=== PATIENT | female | born 1985 | race Caucasian/White ===

== ENCOUNTER 2016-11-13 16:30 | Inpatient (IN) | payer OTHER ==
[2016-11-13] MEDS ORDERED: NS 1,000 ML IV ONE (17:22)
[2016-11-13] MEDS ORDERED: ONDANSETRON 4 MG/2 ML VIAL IVP ONE (17:22)
[2016-11-13] MEDS ORDERED: methylPREDNISolone SOD SUCC 125 MG/2 ML VIAL IVP ONE (17:25)
--- NOTE | 2016-11-13 17:30 | EDPHY ---
H & P Stated Complaint: diarrhea since august/often bloody/hx UC treating with herbs Time Seen by Provider: 11/13/16 17:26 HPI/ROS: HPI: This is a 30-year-old female who presents with Chief Complaint: Bloody diarrhea Location: GI Quality: Bloody diarrhea Duration: Since August Signs and Symptoms: + fever, + chills, + weight loss, + abdominal cramping, no nausea, no vomiting, no hematemesis, no dysuria Timing: Intermittent, several times per day Severity: Moderate Context: Patient complains of worsening diarrhea of greater than 10-20 times per day and since August has noted blood tinged stool. The symptoms continued to worsen. Today alone she has used the bathroom approximately 20 times. She was diagnosed with ulcerative colitis 4 years ago in [place]. Reports that her colonoscopy was incomplete at that time. She never followed up with GI and is not on any maintenance medications as she wants to try alternative therapies. She reports weight loss, intermittent fevers, chills, abdominal cramping. No recent antibiotic use. Modifying Factors: Alternative herbal supplements Comment: ROS: See HPI Constitutional: + fever, + chills, + weight loss Eyes: No blurred vision Respiratory: No shortness of breath, no cough Cardiovascular: No chest pain Gastrointestinal: No nausea, no vomiting, + diarrhea Genitourinary: No dysuria Extremities: No myalgias Neurologic: No weakness, no numbness Skin: No rashes Hematologic: No bruising, no bleeding MEDICAL/SURGICAL/SOCIAL HISTORY: Medical history: Ulcerative colitis Surgical history: Denies Social history: with children. CONSTITUTIONAL: Ill-appearing young adult female, awake and alert, no obvious distress HEENT: Atraumatic and normocephalic, PERRL, EOMI. Tympanic membranes clear. Oropharynx clear, no exudate and moist pink mucosa. Airway patent. No lymphadenopathy. No meningismus. Cardiovascular: Normal S1/S2, regular rate, regular rhythm, without murmur rub or gallop. PULMONARY/CHEST: Symmetrical and nontender. Clear to auscultation bilaterally. Good air movement. No accessory muscle usage. ABDOMEN: Soft, nondistended, non focal generalized tenderness, no rebound, no guarding, no peritoneal signs, no masses or organomegaly. No CVAT. Hyperactive bowel sounds x4 quadrants RECTAL: Inflamed perirectal area with mild erythema, good sphincter tone, loose yellow stool noted in vault, no masses palpated, no shimon blood seen when obtaining guaiac sample EXTREMITIES: 2/2 pulses, no deformities, no clubbing, no cyanosis or edema. NEUROLOGICAL: no focal neuro deficits. GCS 15. SKIN: Warm and dry, no erythema. no rash. Good capillary refill. Source: Patient, Family Exam Limitations: No limitations - Personal History LMP (Females 10-55): 22-28 Days Ago Current Tetanus/Diphtheria Vaccine: Yes - Medical/Surgical History Hx Asthma: No Hx Chronic Respiratory Disease: No Hx Diabetes: No Hx Cardiac Disease: No Hx Renal Disease: No Hx Cirrhosis: No Hx Alcoholism: No Hx HIV/AIDS: No Hx Splenectomy or Spleen Trauma: No Other PMH: ulcerative colitis - Social History Smoking Status: Never smoked Constitutional: Initial Vital Signs Temperature (C) 37.4 C 11/13/16 16:37 Heart Rate 148 H 11/13/16 16:37 Respiratory Rate 17 11/13/16 16:37 Blood Pressure 107/81 H 11/13/16 16:37 O2 Sat (%) 97 11/13/16 16:37 O2 Delivery Mode Room Air Allergies/Adverse Reactions: lidocaine Allergy (Verified 11/13/16 19:55) Unknown Home Medications: Medication Instructions Recorded Acetaminophen [Tylenol 325mg (*)] 325 mg PO Q6 PRN 11/13/16 Herbals/Supplements -Info Only 1 tab PO DAILY 11/13/16 Multivitamins [Multivitamin (*)] 1 each PO DAILY 11/13/16 [place]-3 Fatty Acids [Fish Oil 1000 1,000 mg PO HS 11/13/16 mg (*)] Sod Phos,M-B/Na Phos,Di-Ba [Enema] 133 ml RC DAILY PRN 11/13/16 Medical Decision Making - Diagnostics Imaging Results: Imaging Impressions Abdomen CT 11/13/16 17:23 Impression: 1. Bowel wall thickening predominantly involving the sigmoid consistent with the clinical history of ulcerative colitis. 2. Findings compatible with hepatic steatosis are noted. Results called and discussed with Debra Cutler PA-C, on 11/13/2016, at 1909 hours. ED Course/Re-evaluation: Labs, stool studies, blood cx, UA, guaiac stool, IV fluids, IV medication, CT abdomen and pelvis ordered Given 2 L normal saline and IV methylprednisolone 125 mg. 1730: Suspect patient will need to be admitted for moderate to severe ulcerative colitis flare. She has tachycardia, low normal blood pressure, intermittent fevers, with prolonged uncontrolled ulcerative colitis and no GI follow-up here in [place]. Sodium of 126 noted; creatinine within normal limits, potassium 3.8 Stool occult blood negative. ESR 60 1920: Called by radiologist and CT scan shows thickening in the sigmoid IV Cipro and Flagyl given. UA shows infection; sent for urine culture; will be covered with IV Cipro given previously for colitis 1920: ED decision to consult for admission. Spoke with hospitalist Dr. Gilmer alcaraz accepts patient to provide further care. Spoke with GI of [facility] who kindly agrees to consult on patient. Differential Diagnosis: Abdominal pain including but not limited to appendicitis, cholecystitis, gastritis and urinary tract infection. Critical Care Time: I spent a total of 43 minutes of critical care time in obtaining history, performing a physical exam, bedside monitoring of interventions, collecting and interpreting tests and discussion with consultants but not including time spent performing procedures. Dx: Ulcerative colitis flare, hyponatremia. - Data Points Laboratory Results: Laboratory Results 11/13/16 17:15 11/13/16 17:15 11/13/16 11/13/16 11/13/16 18:10 17:50 17:15 WBC RBC Hgb Hct MCV MCH MCHC RDW Plt Count MPV Neut % (Auto) Lymph % (Auto) Metcalfe % (Auto) Eos % (Auto) Baso % (Auto) Nucleat RBC Rel Count Absolute Neuts (auto) Absolute Lymphs (auto) Absolute Monos (auto) Absolute Eos (auto) Absolute Basos (auto) Absolute Nucleated RBC Immature Gran % Seg Neutrophils % Band Neutrophils % Lymphocytes % Monocytes % Eosinophils % Immature Gran # Absolute Seg Neuts Absolute Band Neuts Absolute Lymphocytes Absolute Monocytes Absolute Eosinophils RBC/WBC/PLT Morphology Toxic Granulation Platelet Estimate Large Platelets ESR VBG Lactic Acid 1.0 mmol/L mmol/L (0.7-2.1) Sodium Potassium Chloride Carbon Dioxide Anion Gap BUN Creatinine Estimated GFR Glucose Calcium Total Bilirubin Conjugated Bilirubin Unconjugated Bilirubin AST ALT Alkaline Phosphatase Total Protein Albumin Lipase Beta HCG, Qual Urine Color PALE YELLOW Urine Appearance CLEAR Urine pH 7.0 (5.0-7.5) Ur Specific Franklin 1.002 (1.002-1.030) Urine Protein NEGATIVE (NEGATIVE) Urine Ketones NEGATIVE (NEGATIVE) Urine Blood 1+ H (NEGATIVE) Urine Nitrate NEGATIVE (NEGATIVE) Urine Bilirubin NEGATIVE (NEGATIVE) Urine Urobilinogen NEGATIVE EU EU (0.2-1.0) Ur Leukocyte Esterase 2+ H (NEGATIVE) Urine RBC 1-3 /hpf /hpf (0-3) Urine WBC 15-25 /hpf H /hpf (0-3) Ur Epithelial Cells NONE SEEN /lpf /lpf (NONE-1+) Urine Bacteria 1+ /hpf H /hpf (NONE SEEN) Urine Glucose NEGATIVE (NEGATIVE) Stool Occult Bld Scrn NEGATIVE (NEGATIVE) 11/13/16 11/13/16 11/13/16 17:15 17:15 17:15 WBC 7.00 10^3/uL 10^3/uL (3.80-9.50) RBC 4.84 10^6/uL 10^6/uL (4.18-5.33) Hgb 12.5 g/dL L g/dL (12.6-16.3) Hct 38.3 % % (38.0-47.0) MCV 79.1 fL L fL (81.5-99.8) MCH 25.8 pg L pg (27.9-34.1) MCHC 32.6 g/dL g/dL (32.4-36.7) RDW 14.9 % % (11.5-15.2) Plt Count 444 10^3/uL H 10^3/uL (150-400) MPV 8.5 fL L fL (8.7-11.7) Neut % (Auto) 68.9 % % (39.3-74.2) Lymph % (Auto) 18.7 % % (15.0-45.0) Metcalfe % (Auto) 10.7 % % (4.5-13.0) Eos % (Auto) 0.3 % L % (0.6-7.6) Baso % (Auto) 0.7 % % (0.3-1.7) Nucleat RBC Rel Count 0.0 % % (0.0-0.2) Absolute Neuts (auto) 4.82 10^3/uL 10^3/uL (1.70-6.50) Absolute Lymphs (auto) 1.31 10^3/uL 10^3/uL (1.00-3.00) Absolute Monos (auto) 0.75 10^3/uL 10^3/uL (0.30-0.80) Absolute Eos (auto) 0.02 10^3/uL L 10^3/uL (0.03-0.40) Absolute Basos (auto) 0.05 10^3/uL 10^3/uL (0.02-0.10) Absolute Nucleated RBC 0.00 10^3/uL 10^3/uL (0-0.01) Immature Gran % 0.7 % % (0.0-1.1) Seg Neutrophils % 28 % % Band Neutrophils % 31 % % Lymphocytes % 33 % % Monocytes % 7 % % Eosinophils % 1 % % Immature Gran # 0.05 10^3/uL 10^3/uL (0.00-0.10) Absolute Seg Neuts 1.96 10^/uL 10^/uL (1.70-6.50) Absolute Band Neuts 2.17 10^3/uL H 10^3/uL (0.00-0.70) Absolute Lymphocytes 2.31 10^3/uL 10^3/uL (1.00-3.00) Absolute Monocytes 0.49 10^3/uL 10^3/uL (0.30-0.80) Absolute Eosinophils 0.07 10^3/uL 10^3/uL (0.03-0.40) RBC/WBC/PLT Morphology NORMAL (NORMAL) Toxic Granulation PRESENT H Platelet Estimate INCREASED H (ADEQ) Large Platelets PRESENT H ESR 60 MM/HR H MM/HR (0-20) VBG Lactic Acid Sodium 126 mEq/L L mEq/L (134-144) Potassium 3.8 mEq/L mEq/L (3.5-5.2) Chloride 90 mEq/L L mEq/L (97-110) Carbon Dioxide 26 mEq/l mEq/l (22-31) Anion Gap 10 mEq/L mEq/L (8-16) BUN 5 mg/dL L mg/dL (7-23) Creatinine 0.6 mg/dL mg/dL (0.6-1.0) Estimated GFR > 60 Glucose 116 mg/dL H mg/dL (70-100) Calcium 8.1 mg/dL L mg/dL (8.5-10.4) Total Bilirubin 0.5 mg/dL mg/dL (0.1-1.4) Conjugated Bilirubin 0.3 mg/dL mg/dL (0.0-0.5) Unconjugated Bilirubin 0.2 mg/dL mg/dL (0.0-1.1) AST 21 IU/L IU/L (14-46) ALT 46 IU/L IU/L (9-52) Alkaline Phosphatase 96 IU/L IU/L (38-126) Total Protein 5.7 g/dL L g/dL (6.3-8.2) Albumin 2.7 g/dL L g/dL (3.5-5.0) Lipase 19 IU/L L IU/L (23-300) Beta HCG, Qual NEGATIVE Urine Color Urine Appearance Urine pH Ur Specific Franklin Urine Protein Urine Ketones Urine Blood Urine Nitrate Urine Bilirubin Urine Urobilinogen Ur Leukocyte Esterase Urine RBC Urine WBC Ur Epithelial Cells Urine Bacteria Urine Glucose Stool Occult Bld Scrn Medications Given: Sodium Chloride (Ns) 1,000 mls @ 100 mls/hr IV CONT HUMBERTO Stop: 05/12/17 21:14 Last Admin: 11/13/16 22:20 Dose: 1,000 mls Methylprednisolone Sodium Succinate (Solu-Medrol) 40 mg IVP Q8HRS HUMBERTO Stop: 05/12/17 21:59 Last Admin: 11/13/16 22:21 Dose: 40 mg Discontinued Medications Acetaminophen (Tylenol) 650 mg PO EDNOW ONE Stop: 11/13/16 18:20 Last Admin: 11/13/16 18:38 Dose: 650 mg Sodium Chloride (Ns) 1,000 mls @ 0 mls/hr IV EDNOW ONE; Wide Open PRN Reason: Protocol Stop: 11/13/16 17:23 Last Admin: 11/13/16 17:52 Dose: 1,000 mls Sodium Chloride (Ns) 1,000 mls @ 0 mls/hr IV EDNOW ONE; Wide Open PRN Reason: Protocol Stop: 11/13/16 17:23 Last Admin: 11/13/16 17:53 Dose: 1,000 mls Ciprofloxacin/Dextrose (Cipro 400 Mg (Premix)) 200 mls @ 200 mls/hr IV EDNOW ONE PRN Reason: Protocol Stop: 11/13/16 20:24 Last Admin: 11/13/16 19:35 Dose: 200 mls Metronidazole/Sodium Chloride (Flagyl 500 Mg (Premix)) 100 mls @ 100 mls/hr IV EDNOW ONE PRN Reason: Protocol Stop: 11/13/16 20:27 Last Admin: 11/13/16 21:14 Dose: 100 mls Methylprednisolone Sodium Succinate (Solu-Medrol) 125 mg IVP EDNOW ONE Stop: 11/13/16 17:26 Last Admin: 11/13/16 17:47 Dose: 125 mg Ondansetron HCl (Zofran) 4 mg IVP EDNOW ONE Stop: 11/13/16 17:23 Last Admin: 11/13/16 17:47 Dose: 4 mg Departure - Departure Disposition: [facility] Inpatient Acute Clinical Impression: Hyponatremia, Acute lower UTI (urinary tract infection) Ulcerative colitis, acute Qualifiers: Digestive disease complication type: without complication Qualified Code(s): K51.90 - Ulcerative colitis, unspecified, without complications
[2016-11-13 17:40] LABS: % IMMATURE GRANULYOCYTES 0.7 % (0.0-1.1); ABSOLUTE IMMATURE GRANULOCYTES 0.05 10^3/uL (0.00-0.10); ADD DIFF? NO; ADD MORPH? NO; ADD SCAN? YES; ALANINE AMINOTRANSFERASE 46 IU/L (9-52); ALBUMIN 2.7 g/dL (3.5-5.0); ALKALINE PHOSPHATASE 96 IU/L (38-126); ANION GAP 10 mEq/L (8-16); ASPARTATE AMINOTRANSFERASE 21 IU/L (14-46); ATYPICAL LYMPHOCYTE FLAG 80 (0-99); BILIRUBIN,TOTAL 0.5 mg/dL (0.1-1.4); BILIRUBIN-CONJUGATED 0.3 mg/dL (0.0-0.5); BILIRUBIN-UNCONJUGATED 0.2 mg/dL (0.0-1.1); CALCIUM 8.1 mg/dL (8.5-10.4); CARBON DIOXIDE 26 mEq/l (22-31); CHLORIDE 90 mEq/L (97-110); CREATININE 0.6 mg/dL (0.6-1.0); FRAGMENT RBC FLAG 0 (0-99); GLOMERULAR FILTRATION RATE > 60; GLUCOSE 116 mg/dL (70-100); HEMATOCRIT 38.3 % (38.0-47.0); HEMOGLOBIN 12.5 g/dL (12.6-16.3); LIPEMIA HEMOLYSIS FLAG 80 (0-99); MEAN CELL HEMOGLOBIN 25.8 pg (27.9-34.1); MEAN CELL HEMOGLOBIN CONCENTR. 32.6 g/dL (32.4-36.7); MEAN CELL VOLUME 79.1 fL (81.5-99.8); MEAN PLATELET VOLUME 8.5 fL (8.7-11.7); PLATELET CLUMPS FLAG 0 (0-99); PLATELET COUNT 444 10^3/uL (150-400); POTASSIUM 3.8 mEq/L (3.5-5.2); RED BLOOD CELL COUNT 4.84 10^6/uL (4.18-5.33); RED CELL DISTRIBUTION WIDTH 14.9 % (11.5-15.2); SODIUM 126 mEq/L (134-144); TOTAL PROTEIN 5.7 g/dL (6.3-8.2)
[2016-11-13] MEDS: NS 1,000 ML IV ONE ×3 (17:46→17:52)
[2016-11-13 17:51] LABS: LEFT SHIFT FLG 300 (0-99)
[2016-11-13 18:09] LABS: SCAN POSITIVE
[2016-11-13 18:13] LABS: PLATELET ESTIMATE INCREASED (ADEQ); TOXIC GRANULATION PRESENT
[2016-11-13 18:14] LABS: LARGE PLATELETS PRESENT
[2016-11-13] MEDS ORDERED: IOPAMIDOL (ISOVUE-300) 100 ML BTL ONE (18:17)
[2016-11-13] MEDS ORDERED: ACETAMINOPHEN 325 MG TAB PO ONE (18:19)
[2016-11-13 18:30] LABS: SEDIMENTATION RATE 60 MM/HR (0-20)
[2016-11-13 18:33] LABS: COLOR PALE YELLOW; LEUKOCYTE ESTERASE,URINE 2+ (NEGATIVE); NITRITE,URINE NEGATIVE (NEGATIVE)
[2016-11-13 18:36] LABS: BACTERIA 1+ /hpf (NONE SEEN); WBC,URINE 15-25 /hpf (0-3)
[2016-11-13] MEDS ORDERED: CIPROFLOXACIN 400 MG/DEXTROSE 200 ML IV ONE (19:25)
[2016-11-13] MEDS ORDERED: ONDANSETRON 4 MG/2 ML VIAL IVP PRN (21:15)
--- NOTE | 2016-11-13 21:53 | GHP ---
[f rep st] HISTORY AND PHYSICAL DATE OF ADMISSION: 11/13/2016 CHIEF COMPLAINT: Diarrhea. HISTORY: This patient is a 30-year-old female who was diagnosed with ulcerative colitis when she randal ed in [place] many years ago. She was initially treated with mesalamine, but it did not help and s he thinks made her ulcerative colitis actually worse, so she discontinued the medication. Has been t reating it with herbals now for many years. She now presents to the emergency room due to severe pasquale rrhea which she has been having since August. She has 35-50 bowel movements per day. She sees blood c lots in the stool 1-3 times per day. She has severe abdominal spasms and cramps. She spends most of her day on the toilet. There have been no nausea and vomiting. She has been having fever and chill s, with fevers at home up to 105 for the last month. She has had a 50-pound weight loss. She does t ry to eat but gets sick immediately after taking anything orally and has to run to the bathroom, and will see whole pieces of food that she just ate coming out in her stool. PAST MEDICAL HISTORY: Ulcerative colitis. MEDICATIONS: Please see computer's record for full detailed list. ALLERGIES: No known drug allergies. SOCIAL HISTORY: No smoking. No alcohol. She lives with her and 2 kids. REVIEW OF SYSTEMS: Complete review of systems obtained. Review of systems is negative regarding con stitutional, HEENT, GI, pulmonary, cardiovascular, , hematology, skin, muscular, endocrine, and psy ch, except for positives and negatives as in HPI. FAMILY HISTORY: Negative for ulcerative colitis. PHYSICAL EXAMINATION: GENERAL: Well-developed, well-nourished female in no acute distress. VITAL S IGNS: Temperature 36.8, pulse 148, blood pressure 103/65, saturating 95% on room air. EYES: Normal conjunctiva, pupils equal, round, react to light. ENT: Normal ears and nose. Hearing intact. Nor mal lips and teeth. Oropharynx moist. NECK: Trachea midline. No thyromegaly. CHEST: Normal resp iratory effort. LUNGS: Clear to auscultation bilaterally. CARDIOVASCULAR: Regular rhythm. No mur mur. No lower extremity edema. ABDOMEN: Soft, nontender. No hepatosplenomegaly. SKIN: Warm, dry , intact without rash. MUSCULOSKELETAL: No cyanosis or clubbing. Strength 5/5 upper and lower extr emities. NEUROLOGIC: Cranial nerves intact. Normal sensation to light touch. PSYCHIATRIC: Alert and oriented x3. Normal mood and affect. Normal judgment and insight. Normal memory. LABORATORY DATA: White count 7.0, hematocrit 38.3, platelets 444. Sodium 126, potassium 3.8, chlori de , bicarb 26, BUN 5, creatinine 0.6, glucose 116. LFTs are negative. Albumin 2.7. Preg jamey test is negative. Lactate 1.0. CT scan of the abdomen and pelvis shows sigmoid thickening. This case was discussed with Gely Cutler in the emergency room regarding emergency room course. They did treat her with 125 mg o f IV Solu-Medrol, as well as IV Flagyl and IV Cipro. ASSESSMENT/PLAN: 1. Ulcerative colitis. This is very much uncontrolled. GI PCR is pending to rule out infection. S he has received empiric Cipro and Flagyl in the emergency room. Will hold off on any further antibio tics at this time pending PCR result. Will continue empiric steroids. Gastroenterology has been con sulted and will see her in the morning. 2. Hyponatremia. She is clearly hypovolemic, also evidenced by her severe tachycardia. Will hydrat e with IV fluids and recheck sodium in the morning. 3. Severe protein-calorie malnutrition. She has had a massive weight loss, and her albumin is low. Will consult Dietary. 4. Fever. This is probably due to the inflammation of her colitis; however, if she has recurrence o f fever here, we could check some blood cultures. She does not have a leukocytosis. COR STATUS: Full. ADMISSION STATUS: Will admit to inpatient, as she is quite sick. Anticipate greater than 2 midnight s for stabilization. DEEP VENOUS THROMBOSIS PROPHYLAXIS: She is high risk. Will place her on subcu Lovenox. /[id number]/MODL
[2016-11-13] MEDS ORDERED: ACETAMINOPHEN 325 MG TAB PO PRN (22:00)
[2016-11-13] MEDS: NS 1,000 ML IV SCH (22:20)
[2016-11-13] MEDS: methylPREDNISolone SOD SUCC 40 MG/ML VIAL IVP SCH (22:21)
[2016-11-14 04:55] LABS: ADD MORPH? NO; ADD SCAN? YES; ATYPICAL LYMPHOCYTE FLAG 70 (0-99); FRAGMENT RBC FLAG 0 (0-99); HEMATOCRIT 32.1 % (38.0-47.0); HEMOGLOBIN 10.3 g/dL (12.6-16.3); LIPEMIA HEMOLYSIS FLAG 80 (0-99); MEAN CELL HEMOGLOBIN 25.8 pg (27.9-34.1); MEAN CELL HEMOGLOBIN CONCENTR. 32.1 g/dL (32.4-36.7); MEAN CELL VOLUME 80.3 fL (81.5-99.8); MEAN PLATELET VOLUME 8.3 fL (8.7-11.7); PLATELET CLUMPS FLAG 10 (0-99); PLATELET COUNT 297 10^3/uL (150-400); RED CELL DISTRIBUTION WIDTH 14.8 % (11.5-15.2)
[2016-11-14 05:06] LABS: ALBUMIN 1.9 g/dL (3.5-5.0); ANION GAP 6 mEq/L (8-16); CALCIUM 7.2 mg/dL (8.5-10.4); CARBON DIOXIDE 25 mEq/l (22-31); CHLORIDE 102 mEq/L (97-110); CREATININE 0.4 mg/dL (0.6-1.0); GLOMERULAR FILTRATION RATE > 60; GLUCOSE 161 mg/dL (70-100); MAGNESIUM 2.4 mg/dL (1.6-2.3); SODIUM 133 mEq/L (134-144)
[2016-11-14 05:12] LABS: LEFT SHIFT FLG 300 (0-99)
[2016-11-14 05:34] LABS: ADD DIFF? YES; SCAN POSITIVE
[2016-11-14 05:39] LABS: PLATELET ESTIMATE ADEQUATE (ADEQ); POLYCHROMASIA 1+; TOXIC GRANULATION PRESENT
[2016-11-14] MEDS: NS 1,000 ML IV SCH ×2 (06:20→19:51)
[2016-11-14] MEDS: methylPREDNISolone SOD SUCC 40 MG/ML VIAL IVP SCH ×3 (06:20→22:25)
[2016-11-14] MEDS: ENOXAPARIN 40 MG/0.4 ML SYR SC SCH (09:09)
--- NOTE | 2016-11-14 11:17 | HOSPPROG ---
Hospitalist Progress Note Assessment/Plan: 30 yo F w UC admitted w flare, uncontrolled disease UC: steroids started stool studies neg for infection, cdiff await GI input microcytic anemia: check iron studies hyponatremia: resolved w IVF hypovolemic proph: high risk for VTE lmwh dispo :inpatient for uncontrolled Uc Subjective: tearful. CT images reviewed/interpreted by me. case d/w dr erazo Objective: Vital Signs Temp Pulse Resp BP Pulse Ox 36.3 C 89 12 102/75 97 11/14/16 08:00 11/14/16 08:00 11/14/16 08:00 11/14/16 08:00 11/14/16 08:00 Laboratory Results 11/14/16 04:18 11/14/16 04:18 11/13/16 11/14/16 11/15/16 05:59 05:59 05:59 Intake Total 3035 541 Balance 3035 541 - Physical Exam Constitutional: appears nourished, No no apparent distress Eyes: PERRL, anicteric sclera Ears, Nose, Mouth, Throat: moist mucous membranes, hearing normal Cardiovascular: regular rate and rhythym, no murmur, rub, or gallop Respiratory: no respiratory distress, no rales or rhonchi Gastrointestinal: normoactive bowel sounds, soft, non-tender abdomen, No guarding, No rebound, No distension Genitourinary: no bladder fullness, No trujillo in urethra Skin: warm, normal color Musculoskeletal: full muscle strength, no muscle tenderness ICD10 Worksheet Patient Problems: Problems Problem Status Onset Acute lower UTI (urinary tract infection) Acute Hyponatremia Acute Ulcerative colitis, acute Acute
--- NOTE | 2016-11-14 13:40 | GCON ---
[f rep st] CONSULTATION DATE OF CONSULTATION: 11/14/2016 CHIEF COMPLAINT: Diarrhea. REASON FOR CONSULTATION: I am asked to see this patient in consultation by Dr. Scherer for chief compl aint of diarrhea. HISTORY OF PRESENT ILLNESS: She is a 30-year-old, who was originally diagnosed with ulcerative colit is 4 years ago in [place]. We do not have any old records. She tells me she was initially treated with Lialda, but felt that after about a month, it was not helpful, and she stopped it, and then kashmir cted to do alternative therapy with herbs. She has been having increasing diarrhea, multiple bowel m ovements a day since August, and has been seeing some bright red blood a few times a day, with some abd ominal pain. She does have subjective fevers and chills. The patient tells me that she had a miscar riage in May. The patient has eczema, but no arthritis. ALLERGIES: No reported drug allergies. MEDICATIONS: Been taking Phospho-Soda enema, fish oil, multivitamins, herbal supplements, and Tyleno l. SOCIAL HISTORY: Denies smoking or alcohol. She has 2 children. FAMILY HISTORY: Negative for inflammatory bowel disease. REVIEW OF SYSTEMS: I performed a complete review of systems, which is negative except for pertinent positives and negatives noted above in the HPI. PHYSICAL EXAM: VITAL SIGNS: Temp is 36.5, BP 95/88, pulse 90. GENERAL: She is alert, somewhat lab ile. EYES: Non-scleral icterus. HEENT: No oral lesions. CARDIOVASCULAR: Regular rate and rhythm . CHEST: Clear to auscultation. ABDOMEN: Positive bowel sounds. Not particularly tender, or no rebound. EXTREMITIES: Normal. NEUROLOGICAL: Nonfocal. LABORATORY DATA: LFTs within normal limits. White count 3.4, hematocrit 32.1, platelets 292. A CT scan shows thickening of the sigmoid colon. ASSESSMENT: Patient with history of ulcerative colitis, that has been treated with alternative thera py, previously reported lack of response to Lialda, now with evidence of flare, based on CT scan, mul tiple stools and bloody stools. GI path panel is negative. PLAN: Agree with IV steroids and bowel rest. We will monitor clinical response, and the patient ricarda l need to decide if she wishes to retry a different mesalamine product or consider increased immune s uppression, although, she is somewhat hesitant to consider immune suppressive therapy. This can be r eaddressed as she improves, and we will follow. Thank you for this consult. Sincerely, /[id number]/MODL
--- NOTE | 2016-11-14 16:36 | ASMTCMCOM ---
CM Note CM Note Notes: Chart reviewed. Spoke to patient who is normally independent and cares for her two young children. She stes the diarrhea has been too much to handle. She will go back to [facility] upong discharge. No current needs identifed. Case management to follow should needs arise. Date Signed: 11/14/2016 04:35 PM Electronically Signed By:Martha Pulliam RN
[2016-11-14] MEDS: HYDROmorphONE/DILAUDID 1 MG/ML INJ IVP PRN ×2 (20:20→22:25)
[2016-11-15] MEDS: HYDROmorphONE/DILAUDID 1 MG/ML INJ IVP PRN (04:20)
[2016-11-15] MEDS: NS 1,000 ML IV SCH ×3 (04:20→22:32)
[2016-11-15 05:41] LABS: % SATURATION 12 % (20-55); TOTAL IRON BINDING CAPACITY 147 ug/dL (260-490)
[2016-11-15] MEDS: methylPREDNISolone SOD SUCC 40 MG/ML VIAL IVP SCH ×3 (05:53→22:31)
[2016-11-15] MEDS: ENOXAPARIN 40 MG/0.4 ML SYR SC SCH (10:18)
--- NOTE | 2016-11-15 11:49 | HOSPPROG ---
Hospitalist Progress Note Assessment/Plan: 30 yo F w UC admitted w flare, uncontrolled disease UC: steroids started stool studies neg for infection, cdiff expect impropvement to take 48-72 hours at least microcytic anemia: ACD hyponatremia: resolved w IVF hypovolemic proph: high risk for VTE lmwh dispo :inpatient for uncontrolled Uc Subjective: feels a bit better. still w frequent bm. case d/w dr silva Objective: Vital Signs Temp Pulse Resp BP Pulse Ox 36.8 C 79 14 99/57 L 96 11/15/16 11:02 11/15/16 11:02 11/15/16 11:02 11/15/16 11:02 11/15/16 11:02 Laboratory Results 11/14/16 04:18 11/14/16 04:18 11/14/16 11/15/16 11/16/16 05:59 05:59 05:59 Intake Total 3035 3834 Balance 3035 3834 - Physical Exam Constitutional: no apparent distress, appears nourished Eyes: PERRL, anicteric sclera Ears, Nose, Mouth, Throat: moist mucous membranes, hearing normal Cardiovascular: regular rate and rhythym, no murmur, rub, or gallop Respiratory: no respiratory distress, no rales or rhonchi Gastrointestinal: normoactive bowel sounds, soft, non-tender abdomen Genitourinary: no bladder fullness, No trujillo in urethra Skin: warm, normal color Musculoskeletal: full muscle strength, no muscle tenderness Neurologic: AAOx3 Psychiatric: interacting appropriately ICD10 Worksheet Patient Problems: Problems Problem Status Onset Acute lower UTI (urinary tract infection) Acute Hyponatremia Acute Ulcerative colitis, acute Acute
--- NOTE | 2016-11-15 12:05 | SOAPPROG ---
SOAP Progress Note Assessment/Plan: Assessment: 1. BIANKA with distal flare; mild improvement in symptoms on IV steroids. 2. Diarrhea secondary to BIANKA; improved. Plan: 1. Continue IV Solumedrol at 40 mg IV TID; will likely need at least 72 hours of IV steroids before changing to oral steroids. 2. No need for colonoscopy during this admission unless we do not see significant improvement in symptoms on steroids. Ever Lozada MD 11/15/16 12:02 Subjective: CC: BIANKA with active colitis. Interim HPI: Patient reports greater than 30 loose BM's yesterday with some blood at end of BM's. 8 BM's so far today. Some urgency and cramping. Objective: Vital Signs Temp Pulse Resp BP Pulse Ox 36.8 C 79 14 99/57 L 96 11/15/16 11:02 11/15/16 11:02 11/15/16 11:02 11/15/16 11:02 11/15/16 11:02 Laboratory Results 11/14/16 04:18 11/14/16 04:18 11/14/16 11/15/16 11/16/16 05:59 05:59 05:59 Intake Total 3035 3834 Balance 3035 3834 Physical Exam - Physical Exam General Appearance: WD/WN, alert, no apparent distress Respiratory: lungs clear, normal breath sounds Cardiac/Chest: normal peripheral pulses, regular rate, rhythm Abdomen: normal bowel sounds, soft (mildly tender all 4 quads.) Skin: normal color, warm/dry Neuro/Psych: no motor/sensory deficits, alert, normal mood/affect, oriented x 3 ICD10 Worksheet Patient Problems: Problems Problem Status Onset Acute lower UTI (urinary tract infection) Acute Hyponatremia Acute Ulcerative colitis, acute Acute
--- NOTE | 2016-11-16 03:29 | SOAPPROG ---
SOAP Progress Note Assessment/Plan: Assessment: 1. BIANKA with distal flare; +/- improvement in symptoms on IV steroidssince yesterday. 2. Diarrhea secondary to BIANKA. 3. Scant BRB on end of BM's likely hemorrhoidal. Plan: 1. Continue IV Solumedrol at 40 mg IV TID; will likely need at least 72 hours of IV steroids before changing to oral steroids. 2. Consider colonoscopy during this admission if no significant improvement in symptoms on steroids. Ever Lozada MD 11/16/16 03:25 Subjective: CC: Flare of BIANKA. Interval HPI: Patient has not noticed significant improvement in symptoms since yesterday. Two loose BM last night, one with BRB spotting at end of BM. Still having rectal urgency and abdominal cramping prior to BM's. Objective: Vital Signs Temp Pulse Resp BP Pulse Ox 36.7 C 90 16 111/65 96 11/15/16 23:34 11/15/16 23:34 11/15/16 23:34 11/15/16 23:34 11/15/16 23:34 Laboratory Results 11/14/16 04:18 11/14/16 04:18 11/14/16 11/15/16 11/16/16 05:59 05:59 05:59 Intake Total 3035 3834 1100 Balance 3035 3834 1100 Physical Exam - Physical Exam General Appearance: alert, no apparent distress Respiratory: lungs clear, normal breath sounds Cardiac/Chest: regular rate, rhythm Abdomen: normal bowel sounds, non-tender, soft Skin: warm/dry Neuro/Psych: alert, normal mood/affect, oriented x 3 ICD10 Worksheet Patient Problems: Problems Problem Status Onset Acute lower UTI (urinary tract infection) Acute Hyponatremia Acute Ulcerative colitis, acute Acute
[2016-11-16] MEDS: methylPREDNISolone SOD SUCC 40 MG/ML VIAL IVP SCH ×3 (06:22→21:35)
--- NOTE | 2016-11-16 10:01 | HOSPPROG ---
Hospitalist Progress Note Assessment/Plan: 30 yo F new to my care 11/16 with UC admitted w flare, uncontrolled disease UC flare (minimal improvement since starting IV steroids) -continue inpatient care -will discuss further care with GI ?colonoscopy prior to DC microcytic anemia: ACD -repeat labs 11/17 hyponatremia: resolved w IVF hypovolemic proph: high risk for VTE lmwh dispo :inpatient for uncontrolled Uc Subjective: continues to have frequent stool. starting to feel "a little better " no fever or chills Objective: Vital Signs Temp Pulse Resp BP Pulse Ox 36.4 C 80 14 110/70 97 11/16/16 08:00 11/16/16 08:00 11/16/16 08:00 11/16/16 08:00 11/16/16 08:00 Laboratory Results 11/14/16 04:18 11/14/16 04:18 11/15/16 11/16/16 11/17/16 05:59 05:59 05:59 Intake Total 3834 1100 Balance 3834 1100 - Physical Exam Constitutional: no apparent distress, appears nourished, not in pain Ears, Nose, Mouth, Throat: moist mucous membranes, hearing normal, ears appear normal, no oral mucosal ulcers Cardiovascular: regular rate and rhythym, no murmur, rub, or gallop Respiratory: no respiratory distress, no rales or rhonchi, clear to auscultation Gastrointestinal: normoactive bowel sounds, soft, non-tender abdomen, no palpable masses, No guarding, No rebound ICD10 Worksheet Patient Problems: Problems Problem Status Onset Hyponatremia Acute Ulcerative colitis, acute Acute Acute lower UTI (urinary tract infection) Acute
[2016-11-16] MEDS: ENOXAPARIN 40 MG/0.4 ML SYR SC SCH (10:48)
[2016-11-16] MEDS: NS 1,000 ML IV SCH ×2 (10:49→22:42)
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
[2016-11-17] MEDS: NS 1,000 ML IV SCH ×2 (06:19→19:44)
[2016-11-17] MEDS: methylPREDNISolone SOD SUCC 40 MG/ML VIAL IVP SCH ×3 (06:19→21:35)
--- NOTE | 2016-11-17 09:33 | HOSPPROG ---
Hospitalist Progress Note Assessment/Plan: 30 yo F new to my care 11/16 with UC admitted w flare, uncontrolled disease UC flare (seems to be improving) -continue inpatient care -I have a call into GI (Dr. Beavers to discuss plan) microcytic anemia: ACD -repeat labs 11/17 hyponatremia: resolved w IVF hypovolemic proph: high risk for VTE lmwh dispo :inpatient for uncontrolled Uc Subjective: continues to have frequent nonbloody stool. no fever or chills. sad to be here in the hospital Objective: Vital Signs Temp Pulse Resp BP Pulse Ox 36.8 C 77 12 99/74 L 96 11/17/16 08:00 11/17/16 08:00 11/17/16 08:00 11/17/16 08:00 11/17/16 08:00 Laboratory Results 11/14/16 04:18 11/14/16 04:18 11/16/16 11/17/16 11/18/16 05:59 05:59 05:59 Intake Total 1100 2255 Output Total 754 Balance 1100 1501 - Physical Exam Constitutional: no apparent distress, appears nourished, not in pain Cardiovascular: regular rate and rhythym, no murmur, rub, or gallop Respiratory: no respiratory distress, no rales or rhonchi, clear to auscultation Gastrointestinal: normoactive bowel sounds, soft, non-tender abdomen, no palpable masses, No guarding, No rebound Psychiatric: other (tearful) ICD10 Worksheet Patient Problems: Problems Problem Status Onset Hyponatremia Acute Ulcerative colitis, acute Acute Acute lower UTI (urinary tract infection) Acute
[2016-11-17] MEDS: ENOXAPARIN 40 MG/0.4 ML SYR SC SCH (11:33)
--- NOTE | 2016-11-17 12:06 | PDANEPAE ---
ANE History of Present Illness flex sig for colitis ANE Past Medical History - Pulmonary History Hx Oxygen in Use at Home: No Hx Sleep Apnea: No Sleep Apnea Screening Result - Last Documented: Negative - Endocrine History Hx Diabetes: No - Chronic Pain History Chronic Pain: No ANE Review of Systems Review of Systems: - Exercise capacity Exercise capacity: >=4 METS ANE Patient History - Allergies Allergies/Adverse Reactions: lidocaine Allergy (Verified 11/17/16 12:05) Unknown - Home Medications Home medications: home medication list seen and reviewed Home Medications: Acetaminophen [Tylenol 325mg (*)] 325 mg PO Q6 PRN 11/13/16 [Last Taken 11/12/16 ] Herbals/Supplements -Info Only 1 tab PO DAILY 11/13/16 [Last Taken 11/13/16] Multivitamins [Multivitamin (*)] 1 each PO DAILY 11/13/16 [Last Taken 11/13/16] Harlan-3 Fatty Acids [Fish Oil 1000 mg (*)] 1,000 mg PO HS 11/13/16 [Last Taken 11/13/16] Sod Phos,M-B/Na Phos,Di-Ba [Enema] 133 ml RC DAILY PRN 11/13/16 [Last Taken ] - NPO status NPO Since - Liquids (Date): 11/17/16 NPO Since - Liquids (Time): 00:00 NPO Since - Solids (Date): 11/17/16 NPO Since - Solids (Time): 00:00 - Smoking Hx Smoking Status: Never smoked ANE Labs/Vital Signs - Labs Result Diagrams: 11/14/16 04:18 11/14/16 04:18 - Vital Signs Blood Pressure: 99/74 Heart Rate: 77 Respiratory Rate: 12 O2 Sat (%): 96 Height: 175.26 cm Weight: 57 kg ANE Physical Exam - Airway Mallampati Score: Class 1 Mouth exam: normal dental/mouth exam - Pulmonary Pulmonary: no respiratory distress - Cardiovascular Cardiovascular: regular rate and rhythym - ASA Status ASA Status: I ANE Anesthesia Plan Anesthesia Plan: GA with mask (R/B/A explained and pt. agrees to proceed)
[2016-11-17] MEDS ORDERED: fentaNYL 100 MCG/2 ML INJ ONE (12:09)
[2016-11-17] MEDS ORDERED: LIDOCAINE 2% 100 MG/5 ML SYR ONE (12:09)
[2016-11-17] MEDS ORDERED: PROPOFOL/EMULSION 500 MG/50 ML BOTTLE IV ONE (12:09)
[2016-11-17] MEDS ORDERED: DEXAMETHASONE 4 MG/ML VIAL ONE (12:14)
[2016-11-17] MEDS ORDERED: ONDANSETRON 4 MG/2 ML VIAL ONE (12:14)
[2016-11-17] MEDS ORDERED: NS 500 ML IV SCH (12:30)
--- NOTE | 2016-11-17 13:23 | GIREPORT ---
Pending Sale To [facility] - Endoscopy Department Patient Name: Mel Mcallister Procedure Date: 11/17/2016 11:49 AM Patient Type: Inpatient Attending MD/ ER Physician: David Beavers MD Procedure: Flexible Sigmoidoscopy Indications: Personal history of ulcerative colitis, Hematochezia, Diarrhea Patient Profile: 30 year old female with a history of ulcerative colitis presents for evaluation of hematochezia and diarrhea. Providers: David Beavers MD Medicines: Monitored Anesthesia Care Complications: No immediate complications. Estimated blood loss: None. Description of Procedure: After obtaining informed consent, the endoscope was passed under direct vision. Throughout the procedure, the patient's blood pressure, pulse, and oxygen saturations were monitored continuous ly. The Colonoscope with irrigation channel was introduced through the anus and advanced to the sigm oid colon. The flexible sigmoidoscopy was accomplished without difficulty. The patient tolerated the procedure well. The quality of the bowel preparation was poor. Findings: The perianal examination was normal. A continuous area of ulcerated, erythematous mucosa was present in the rectum and in the sigmoid colon. The ulcerations were superficial. There was loss of vascular pattern. Significant exudate was also seen. Biopsies were taken with a cold forceps for histology. Estimated Blood Loss: Estimated blood loss was minimal. Post Op Diagnosis: - Preparation of the colon was poor. - Severe colitis. Biopsies taken. Recommendation: - Await pathology results. - Clear liquid diet. - Continue IV steroids - Thank you for allowing me to participate in the care of your patient. Attending Participation: I personally performed the entire procedure. David Beavers MD David Beavers MD 11/17/2016 1:22:58 PM Number of Addenda: 0 Note Initiated On: 11/17/2016 11:49 AM [email or web address]
[2016-11-18] MEDS: methylPREDNISolone SOD SUCC 40 MG/ML VIAL IVP SCH ×3 (05:12→21:37)
[2016-11-18] MEDS: NS 1,000 ML IV SCH ×2 (05:18→14:43)
--- NOTE | 2016-11-18 09:02 | POSTANESTH ---
Post Anesthetic Evaluation Cardiovascular Status: Normal, Stable Respiratory Status: Normal, Stable Level of Consciousness/Mental Status: Can Participate in Eval Pain Control: Adequate, Prn Tx Ordered Nausea/Vomiting Control: Adequate, Prn Tx Ordered Complications Possibly Related to Anesthesia: None Noted
[2016-11-18] MEDS: ENOXAPARIN 40 MG/0.4 ML SYR SC SCH (09:05)
--- NOTE | 2016-11-18 10:58 | HOSPPROG ---
Hospitalist Progress Note Assessment/Plan: 30 yo F new to my care 11/16 with UC admitted w flare, uncontrolled disease UC flare (seems to be improving) s/p sigmoidoscopy 11/17 -continue inpatient care for IV steroids microcytic anemia: ACD -repeat labs hyponatremia (repeat) proph: high risk for VTE lmwh dispo :inpatient for uncontrolled Uc. DC on oral prednisone once cleared by GI Subjective: down to 10 stools. now tolering diet. still feels very weak Objective: Vital Signs Temp Pulse Resp BP Pulse Ox 36.8 C 79 14 84/51 L 98 11/18/16 07:20 11/18/16 07:20 11/18/16 07:20 11/18/16 07:20 11/18/16 07:20 Laboratory Results 11/14/16 04:18 11/14/16 04:18 11/17/16 11/18/16 11/19/16 05:59 05:59 05:59 Intake Total 2255 3511 Output Total 754 2400 Balance 1501 1111 gen nad cv rrr pulm clear abd soft +bs ext no edema ICD10 Worksheet Patient Problems: Problems Problem Status Onset Hyponatremia Acute Ulcerative colitis, acute Acute Acute lower UTI (urinary tract infection) Acute
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
--- NOTE | 2016-11-18 16:31 | SOAPPROG ---
SESAR Progress Note Assessment/Plan: Assessment: Plan: 11/18/16 16:29 A/P 1. Ulcerative colitis- severe. On IV steroids. Will add 5-ASA. Will consider changing to oral prednisone in am. Subjective: cc: Follow up UC Still complaining of diarrhea. Non blood. No significant pain. Objective: Vital Signs Temp Pulse Resp BP Pulse Ox 36.8 C 78 16 95/51 L 97 11/18/16 15:04 11/18/16 15:04 11/18/16 15:04 11/18/16 15:04 11/18/16 15:04 Laboratory Results 11/14/16 04:18 11/14/16 04:18 11/17/16 11/18/16 11/19/16 05:59 05:59 05:59 Intake Total 2255 3511 Output Total 754 2400 Balance 1501 1111 Physical Exam - Physical Exam General Appearance: alert, no apparent distress EENT: No scleral icterus (R), No scleral icterus (L) Respiratory: lungs clear, normal breath sounds Cardiac/Chest: normal peripheral pulses, regular rate, rhythm, No bradycardia, No tachycardia, No diastolic murmur, No systolic murmur Abdomen: non-tender, soft, No hepatomegaly, No splenomegaly Skin: normal color, warm/dry Neuro/Psych: normal mood/affect, oriented x 3, No abnormal spindle maker II-XII ICD10 Worksheet Patient Problems: Problems Problem Status Onset Hyponatremia Acute Ulcerative colitis, acute Acute Acute lower UTI (urinary tract infection) Acute
[2016-11-18] MEDS: MESALAMINE 800 MG TAB.DR PO SCH ×2 (16:48→21:37)
[2016-11-18] MEDS: LOPERAMIDE HCL 2 MG CAP PO PRN (17:40)
[2016-11-19] MEDS: HYDROmorphONE/DILAUDID 1 MG/ML INJ IVP PRN ×2 (02:10→05:56)
[2016-11-19] MEDS: NS 1,000 ML IV SCH (02:10)
[2016-11-19] MEDS: methylPREDNISolone SOD SUCC 40 MG/ML VIAL IVP SCH ×2 (05:56→16:03)
[2016-11-19 08:56] LABS: % IMMATURE GRANULYOCYTES 1.7 % (0.0-1.1); ADD DIFF? NO; ADD MORPH? NO; ADD SCAN? YES; ALANINE AMINOTRANSFERASE 31 IU/L (9-52); ALBUMIN 2.5 g/dL (3.5-5.0); ALKALINE PHOSPHATASE 59 IU/L (38-126); ANION GAP 8 mEq/L (8-16); ASPARTATE AMINOTRANSFERASE 13 IU/L (14-46); ATYPICAL LYMPHOCYTE FLAG 10 (0-99); BILIRUBIN,TOTAL 0.3 mg/dL (0.1-1.4); CALCIUM 8.2 mg/dL (8.5-10.4); CARBON DIOXIDE 29 mEq/l (22-31); CHLORIDE 102 mEq/L (97-110); CREATININE 0.4 mg/dL (0.6-1.0); FRAGMENT RBC FLAG 0 (0-99); GLOMERULAR FILTRATION RATE > 60; GLUCOSE 113 mg/dL (70-100); HEMOGLOBIN 11.2 g/dL (12.6-16.3); LIPEMIA HEMOLYSIS FLAG 80 (0-99); MEAN CELL HEMOGLOBIN 25.7 pg (27.9-34.1); MEAN CELL HEMOGLOBIN CONCENTR. 31.1 g/dL (32.4-36.7); MEAN CELL VOLUME 82.6 fL (81.5-99.8); MEAN PLATELET VOLUME 8.2 fL (8.7-11.7); PLATELET CLUMPS FLAG 0 (0-99); PLATELET COUNT 399 10^3/uL (150-400); POTASSIUM 3.7 mEq/L (3.5-5.2); RED BLOOD CELL COUNT 4.36 10^6/uL (4.18-5.33); RED CELL DISTRIBUTION WIDTH 16.1 % (11.5-15.2); SODIUM 139 mEq/L (134-144); TOTAL PROTEIN 4.9 g/dL (6.3-8.2)
[2016-11-19 09:02] LABS: LEFT SHIFT FLG 220 (0-99)
[2016-11-19 10:24] LABS: SCAN POSITIVE
[2016-11-19] MEDS: MESALAMINE 800 MG TAB.DR PO SCH ×2 (10:28→16:01)
[2016-11-19 10:35] LABS: TOXIC VACUOLIZATION PRESENT
[2016-11-19] MEDS: ENOXAPARIN 40 MG/0.4 ML SYR SC SCH (10:35)
[2016-11-19 10:39] LABS: PLATELET ESTIMATE ADEQUATE (ADEQ)
[2016-11-19] MEDS ORDERED: predniSONE 20 MG TAB PO ONE (14:14)
--- NOTE | 2016-11-19 14:28 | PDDCSUM ---
Discharge Summary Discharge Summary: DISCHARGE SUMMARY FOLLOW-UP ITEMS: ESR and CRP sent prior to discharge DATE OF ADMISSION: 11/13/2016 DATE OF DISCHARGE: 11/19/2016 DISCHARGE DIAGNOSES: 1. Acute ulcerative colitis flare 2. Anemia of chronic inflammatory disease 3. Acute hyponatremia 4. Moderate protein calorie malnutrition 5. Acute lower gastrointestinal bleed CONSULTATIONS: Gastroenterology PROCEDURES / IMAGING: Sigmoidoscopy CHIEF COMPLAINT: Acute hematochezia with diarrhea SUBJECTIVE: Patient continues to experience loose bowel movements and experienced 1 episode of hematochezia on the day of discharge PHYSICAL EXAM ON DISCHARGE: Systolic blood pressure is 100-110, heart rate 60 to 80, afebrile overnight, satting well on room air, abdomen is soft nontender nondistended, completely benign, bowel sounds are present, affect is flat LABS ON DISCHARGE: Hemoglobin 11.2, white blood cell count 5800, ESR on 11/13/2016 is 60, serum sodium 139, iron 18, TIBC 147, iron sat 12%, ferritin 437, creatinine 0.4, BUN 3 HOSPITAL COURSE BY PROBLEM: 1. Acute ulcerative colitis flare. Evidenced by sigmoidoscopy demonstrating inflammatory tissue with pathology confirming as much, hematochezia and diarrhea , patient had not been previously receiving medications prior to this presentation. She was seen in consultation by Dr. David Beavers, and he confirm the diagnosis. She was initiated on IV steroids, Asacol, antidiarrheals, and her symptoms somewhat improved. On the day of discharge, we were in the process of transitioning the patient from IV methylprednisone to oral prednisone , with the intention of gauging defect over the span of at least 24 hours. The patient has become increasingly frustrated with her acute illness and is requesting to be discharged at this time. Both Dr. David Beavers and myself recommended that she remain hospitalized for transitioning to oral steroids, so that we would be able to gauge effect and ensure that she is being safely discharged home. The patient understands these risks and she would still like to be discharged at this time, and she will receive 40 mg of oral prednisone prior to being discharged. She will continue on 40 mg of prednisone daily as well as scheduled Asacol and Imodium as needed. She should follow up with [facility] in 1 week after discharge. At that time, Dr. David Beavers will assess whether the patient is steroid refractory, which would necessitate escalation of care. 2. Anemia of chronic inflammatory disease. Patient has microcytic anemia, possibly secondary to ongoing blood loss as well as her chronic inflammatory ulcerative colitis. At this juncture, there does not appear to be a role of additional iron therapy, and hemoglobin is stable at 11. 3. Acute hyponatremia. Secondary to renal hypoperfusion in the setting of above , she received IV normal saline and this normalized. 4. Acute lower gastrointestinal hemorrhage. The patient was experiencing hematochezia at time of admission, secondary to lower GI bleeding from ulcerative colitis. Her hemoglobin remained stable during her hospitalization she did not require blood transfusion. 5. Moderate protein calorie malnutrition. Evidenced by weight loss over the preceding 5 months since her initial episode of ulcerative colitis, resulting in reduction in her BMI, muscle group wasting, low albumin level. We recommended higher calorie intake as well as controlling her ulcerative colitis. DISCHARGE MEDICATIONS: Please see official discharge medication reconciliation sheet in chart , mesalamine 1600 mg 3 times daily, prednisone 40 mg daily, Imodium as needed, discontinuation of her sodium bicarbonate enemas. DISCHARGE INSTRUCTIONS: Please follow up at [facility] in 1 week. TIME SPENT: Greater than 30 minutes were spent on direct patient care, as well as discharge planning and preparation.
[2016-11-19 15:54] VITALS: BP 100/62; PULSE 90; RESP 12; TEMP 98; O2SAT 97
--- NOTE | 2016-11-19 16:15 | SOAPPROG ---
SESAR Progress Note Assessment/Plan: Assessment: Plan: 11/18/16 16:29 A/P 1. Ulcerative colitis- severe. On IV steroids. Will add 5-ASA. Will consider changing to oral prednisone in am. 11/19/16 16:11 A/P 1. Ulcerative colitis- severe. Will start on oral prednisone with IV overlap. Consider stopping IV tomorrow. Patient is anxious to go home and I did advise against it due to her severe symptoms. Continue 5-ASA. Subjective: cc: Follow up ulcerative colitis Still having diarrhea- 9 BMs in last 24 hours. Minimal blood. Objective: Vital Signs Temp Pulse Resp BP Pulse Ox 36.7 C 90 12 100/62 97 11/19/16 15:51 11/19/16 15:51 11/19/16 15:51 11/19/16 15:51 11/19/16 15:51 Microbiology 11/13/16 20:05 Blood Culture - Final Blood 11/13/16 19:48 Blood Culture - Final Blood Laboratory Results 11/19/16 08:35 11/19/16 08:35 11/18/16 11/19/16 11/20/16 05:59 05:59 05:59 Intake Total 3511 1700 Output Total 2400 350 Balance 1111 1700 -350 Physical Exam - Physical Exam General Appearance: alert, no apparent distress EENT: No scleral icterus (R), No scleral icterus (L) Respiratory: lungs clear, normal breath sounds, No rales, No rhonchi Cardiac/Chest: regular rate, rhythm Abdomen: normal bowel sounds, non-tender, soft, No guarding, No rebound Skin: normal color Neuro/Psych: no motor/sensory deficits, alert, oriented x 3, No abnormal boom man II- XII ICD10 Worksheet Patient Problems: Problems Problem Status Onset Hyponatremia Acute Ulcerative colitis, acute Acute Acute lower UTI (urinary tract infection) Acute
[2016-11-19] MEDS: LOPERAMIDE HCL 2 MG CAP PO PRN (16:37)
[2016-11-19 16:55] LABS: SEDIMENTATION RATE 29 MM/HR (0-20)
== END 2016-11-19 18:30 | disposition home or self-care (01) | DRG 386 ==
LOC: F3E 20:50
PROVIDERS: ADMIT Internal Medicine; ATTEND Internal Medicine
PROC: 0DBE8ZX Excision of Large Intestine, Via Natural or Artificial Opening Endoscopic, Diagnostic (ICD-10-PCS; principal; 2016-11-17 12:00)
DX: K51.911 Ulcerative colitis, unspecified with rectal bleeding (principal); E87.1 Hypo-osmolality and hyponatremia; E44.0 Moderate protein-calorie malnutrition; D63.8 Anemia in other chronic diseases classified elsewhere
CPT/HCPCS: 96365; J0744; J1100; J1170; J1650; J2001; J2405; J2704; J3010; Q9967

== ENCOUNTER 2017-06-24 18:15 | Emergency (ER) | payer OTHER ==
--- NOTE | 2017-06-24 18:55 | EDPHY ---
H & P Stated Complaint: vaginal bleeding x 4 weeks, PCP notified patient today that she is Time Seen by Provider: 06/24/17 18:41 HPI/ROS: CHIEF COMPLAINT: Vaginal bleeding, HISTORY OF PRESENT ILLNESS: 31-year-old female last menstrual period 2017 presents with vaginal bleeding. Onset of vaginal bleeding 4 weeks ago, persistent since then. The bleeding is mild and she uses 1 tampon a day. She was seen by her primary care physician yesterday and quantitative beta-hCG was 25. She was sent here for further evaluation. No abdominal cramping. REVIEW OF SYSTEMS: complete 10 point ROS negative except at noted in the HPI - Personal History LMP (Females 10-55): - Medical/Surgical History Hx Asthma: No Hx Chronic Respiratory Disease: No Hx Diabetes: No Hx Cardiac Disease: No Hx Renal Disease: No Hx Cirrhosis: No Hx Alcoholism: No Hx HIV/AIDS: No Hx Splenectomy or Spleen Trauma: No Other PMH: ulcerative colitis, 1 year with demise - Social History Smoking Status: Never smoked - Physical Exam Exam: General Appearance: Alert, pleasant Eyes: Pupils equal and round, no conjunctival pallor ENT, Mouth: Mucous membranes moist Neck: Normal inspection Respiratory: Lungs are clear to auscultation Cardiovascular: Regular rate and rhythm Gastrointestinal: Abdomen is soft and nontender Neurological: A&O, nonfocal, normal gait Skin: Warm and dry Extremities: Normal inspection Psychiatric: Mood and affect normal Constitutional: Initial Vital Signs Temperature (C) 36.7 C 06/24/17 18:23 Heart Rate 98 06/24/17 18:23 Respiratory Rate 16 06/24/17 18:23 Blood Pressure 123/92 H 06/24/17 18:23 O2 Sat (%) 98 06/24/17 18:23 O2 Delivery Mode Room Air Allergies/Adverse Reactions: lidocaine Allergy (Verified 06/24/17 18:22) Unknown Home Medications: Medication Instructions Recorded NK [No Known Home Meds] 06/24/17 Medical Decision Making - Diagnostics Imaging Results: Pelvic/Renal Ultrasound 06/24/17 18:46 Impression: Potentially a very early IUP versus blighted ovum. Recommend serial hCG measurements and follow-up ultrasound. Results called and discussed with ALLEN DE LEON at 06/24/2017 19:59 ED Course/Re-evaluation: This pt presents with vaginal bleeding and positive test. Stat ultrasound reveals a tiny intrauterine fluid collection. Quantitative hCG is decreasing today and is 14. I doubt that this is a viable . In addition, there is no evidence of ectopic . She has no abdominal pain and no pelvic tenderness. Will f/u with oven press tender. Differential Diagnosis: includes though not limited to dysfunctional uterine bleeding, miscarriage, ectopic , severe anemia. - Data Points Laboratory Results: Laboratory Results 06/24/17 19:00 06/24/17 19:00 Departure - Departure Disposition: Home, Routine, Self-Care Clinical Impression: Vaginal bleeding Condition: Good Instructions: Dysfunctional Uterine Bleeding (ED) Referrals: Kristina Hill MD [Primary Care Provider] - As per Instructions Marcie Blanton MD [Medical Doctor] - As per Instructions (Call to make an appointment. )
[2017-06-24 19:22] LABS: PLATELET COUNT 344 10^3/uL (150-400)
[2017-06-24 20:54] VITALS: BP 134/91
== END 2017-06-24 20:52 | disposition home or self-care (01) ==
DX: O20.8 Other hemorrhage in early pregnancy (principal); Z3A.01 Less than 8 weeks gestation of pregnancy

== ENCOUNTER → 2017-10-20 | Outpatient (CLI) | payer OTHER | LOC: FIMAGING 14:31 | PROVIDERS: ATTEND Obstetrics & Gynecology | DX: Z34.82 Encounter for supervision of other normal pregnancy, second trimester (principal); K51.90 Ulcerative colitis, unspecified, without complications; Z3A.15 15 weeks gestation of pregnancy ==

== ENCOUNTER → 2017-11-17 | Outpatient (CLI) | payer OTHER | LOC: FIMAGING 14:33 | PROVIDERS: ATTEND Obstetrics & Gynecology | DX: Z34.92 Encounter for supervision of normal pregnancy, unspecified, second trimester (principal) ==

== ENCOUNTER → 2018-02-11 | Outpatient (CLI) | payer OTHER | LOC: FIMAGING 14:08 | PROVIDERS: ATTEND Obstetrics & Gynecology | DX: Z34.83 Encounter for supervision of other normal pregnancy, third trimester (principal); Z3A.32 32 weeks gestation of pregnancy ==